=== PATIENT | male | born 2000 | race Caucasian/White ===

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

== ENCOUNTER 2023-05-26 17:45 | Emergency (ER) | payer BC, OTHER ==
[~2023-05-26] VITALS: Ht 180.3 cm; Wt 71.2 kg
[2023-05-26 19:14] VITALS: BP 159/75; TEMP 99.2; O2SAT 96
== END 2023-05-26 19:16 | disposition home or self-care (01) ==
LOC: M ED 17:45
DX: N50.3 Cyst of epididymis (principal); Z88.2 Allergy status to sulfonamides